=== PATIENT | female | born 1985 | race Caucasian/White ===

== ENCOUNTER 2016-08-06 09:29 | Inpatient (IN) ==
[2016-08-06] MEDS ORDERED: NS 1,000 ML IV ONE ×2 (10:04→12:28)
[2016-08-06] MEDS ORDERED: ZOFRAN IV ONE (10:05)
[2016-08-06] MEDS ORDERED: TORADOL IV ONE (10:05)
[2016-08-06 10:31] LABS: URINE CULTURE NEEDED? NO; URINE MICRO REVIEW NEEDED? NO; URINE SOURCE CLEAN CATCH
[2016-08-06 10:37] LABS: BASO% 0.2 % (0.0-0.8); EOS# 0.04 X1000 (0.0-0.7); EOS% 0.3 % (0.0-10.0); HEMATOCRIT 40.6 % (37.0-47.0); HEMOGLOBIN 13.9 g/dL (12.0-16.0); IMM GRAN# 0.02 X1000 (0.0-0.04); IMM GRAN% 0.2 % (0.0-0.5); LYMPH% 7.8 % (20.5-51.1); MANUAL DIFF NEEDED? NO; MCH 31.3 PG (27-31); MCHC 34.2 g/dL (33-37); MCV 91.4 FL (81-99); MONO# 0.55 X1000 (0.11-0.59); MONO% 4.3 % (1.7-9.3); MPV 13.1 FL (7.4-10.4); NEUT% 87.2 % (42.2-75.2); PLT 151 X1000 (130-400); RBC 4.44 XMIL (4.2-5.4)
[2016-08-06 10:38] LABS: BILIRUBIN URINE NEGATIVE (NEGATIVE); BLOOD URINE NEGATIVE (NEGATIVE); COLOR YELLOW; GLUCOSE URINE NEGATIVE (NEGATIVE); LEUKOCYTES URINE NEGATIVE (NEGATIVE); NITRITE URINE NEGATIVE (NEGATIVE); PH URINE 8.5; PROTEIN URINE 50 mg/dL (NEGATIVE); SP GRAVITY URINE 1.021; TURBIDITY URINE HAZY (CLEAR); UROBILINOGEN URINE NORMAL (NORMAL)
[2016-08-06 10:39] LABS: UR EPITHELIAL CELLS <10 /HPF (<10); URINE BACTERIA 1+ /HPF; URINE RBC <10 /HPF (<10); URINE WBC <10 /HPF (<10)
[2016-08-06 11:18] LABS: AGAP 18; ALBUMIN 4.7 g/dL (3.5-5.0); ALKALINE PHOSPHATASE 60 U/L (32-104); AMYLASE 54 U/L (20-200); BUN 12 mg/dL (8-22); CALCIUM 9.7 mg/dL (8.8-10.2); CHLORIDE 96 mmol/L (98-107); COSMO 272; GOT 24 U/L (10-30); GPT 16 U/L (10-36); LIPASE 27 U/L (13-60); POTASSIUM 3.7 mmol/L (3.5-5.1); SODIUM 136 mmol/L (136-145); TCO2 22 mmol/L (25-35); TOTAL BILIRUBIN 0.43 mg/dL (0.20-1.00); TOTAL PROTEIN 8.1 g/dL (6.3-8.3)
--- NOTE | 2016-08-06 11:24 | Diag Imaging Result Document ---
PROCEDURE NAME: US ABDOMEN-COMPLETE - 08/06/2016 COMPLETE ABDOMINAL ULTRASOUND: COMPARISON: None available. FINDINGS: There are shadowing stones in the gallbladder lumen with a large stone lodged in the gallbladder neck measuring up to 1.3 cm. The gallbladder wall is grossly thickened and appears to be edematous. The wall of the gallbladder measures up to 9 mm in thickness. The gallbladder is distended. The common bile duct is normal in diameter. Sonographic Almazan's sign was reported to be positive by the technologist. The liver, spleen, visualized pancreas, aorta, IVC, and kidneys are unremarkable. IMPRESSION: Cholelithiasis with a distended gallbladder and a thickened and edematous gallbladder wall concerning for cholecystitis.
--- NOTE | 2016-08-06 12:06 | PROVIDER DOCUMENTATION ---
This chart was entered by Grecia Castanon Scribe, acting as scribe for Nick Barajas MD. HPI-Abdominal Pain/GI Problem - General Chief Complaint: Abdominal Pain Stated Complaint: SENT BY [facility] FOR EVAL Time Seen by Provider: 08/06/16 09:41 Source: patient Allergies/Adverse Reactions: Patient Allergies Allergy/AdvReac Type Severity Reaction Status Date / Time No Known Allergies Allergy Verified 08/06/16 09:44 Home Medications: Home Medication List Medication Instructions Recorded Confirmed Last Taken Type NK [No Home Medications] 08/06/16 08/06/16 Unknown History - History of Present Illness-ABD Nature of Presenting Problems: Pt is a 31 yof who came to the ED with a cc of abdominal pain. Pt reports she started having RUQ pain yesterday around three. Pt reports she has been N/V. Pt reports the pain radiates to her back in the middle of her shoulder blades. Abdominal Pain Onset Location: reports: RUQ Pain Radiation: reports: back Quality of Pain: reports: sharp Onset/Duration: reports: 24 hours ago Timing: reports: still present Exposure to sick contacts?: Yes Associated Symptoms: reports: nausea, vomiting Last BM: unsure Dark Stools Present?: reports: none noticed Rectal Bleeding: reports: none Rectal Pain: reports: none Bruising or Bleeding Gums?: No Similar Symptoms Previously?: No Recently seen or treated by another doctor?: No (e) Review of Systems - Adult - REVIEW OF SYSTEMS - ADULT Constitutional: denies: chills, fever Eyes: reports: no symptoms reported Ears, Nose, Mouth & Throat: reports: no symptoms reported Cardiovascular: reports: no symptoms reported Respiratory: reports: no symptoms reported Gastrointestinal: reports: abdominal pain, nausea, vomiting. denies: diarrhea, difficulty swallowing Genitourinary: reports: no symptoms reported Musculoskeletal: reports: back pain. denies: frequent leg cramps, muscle aches Integumentary: reports: no symptoms reported Neurological: denies: loss of balance, seizure, syncope Psychiatric: reports: no symptoms reported Endocrine: reports: no symptoms reported Hematologic/Lymphatic: reports: no symptoms reported Allergic/Immunologic: reports: no symptoms reported All Other Systems: Reviewed and Negative Past History - Adult - PAST MEDICAL HISTORY-ADULT Review of Records: reports: Nursing Assessment Review Major Childhood Illnesses: reports: denies history Cardiovascular: reports: denies history Respiratory: reports: denies history Gastrointestinal: reports: denies history Obstetrical/Gynecological: reports: denies history Genitourinary: reports: denies history Musculoskeletal: reports: denies history Neurological: reports: denies history Endocrine/Immune: reports: denies history Other Conditions: reports: denies history - PRIOR SURGERIES/PROCEDURES Surgical/Procedure History: reports: tonsillectomy - IMMUNIZATION STATUS Childhood Immunizations: See Nurse Assessment Flu Vaccine: See Nurse Assessment - FAMILY HISTORY Family History: reviewed, not pertinent Physical Exam-General - CONSTITUTIONAL General Appearance: alert, moderate distress - EYES Eyes: PERRL/EOMI, pink conjunctivae - HEAD, EARS, NOSE, MOUTH & THROAT HENMT: normocephalic/atraumatic, moist mucous membranes - NECK Neck: non-tender - RESPIRATORY Respiratory: chest non-tender, lungs clear, normal breath sounds - CARDIOVASCULAR Cardiovascular: normal peripheral pulses, regular rate, rhythm - GASTROINTESTINAL (ABDOMEN) Abdominal Exam: tenderness, Almazan's sign - MUSCULOSKELETAL Back Exam: normal inspection, no CVA tenderness Extremity: non-tender - SKIN Integumentary: normal color, normal turgor - NEUROLOGIC Neurologic: grossly normal - PSYCHIATRIC Psych/Mental Status: normal mood/affect, normal thought content, normal thought process, oriented x 3 Progress - PLAN OF CARE/RESULTS Progress/Plan/Lab Results: Vital Signs - 8 hr 08/06/16 09:32 Temperature 97.8 F Pulse Rate 52 L Respiratory Rate 16 Blood Pressure 136/83 O2 Sat by Pulse Oximetry 100 Orders Category Date Time Status AMYLASE [CHEM] Stat Lab 08/06/16 10:03 Uncollected CBC WITH ELECTRONIC DIFF [HEME] Stat Lab 08/06/16 10:03 Uncollected COMPREHENSIVE METABOLIC PANEL [CHEM] Stat Lab 08/06/16 10:03 Uncollected Result Diagrams: 08/06/16 10:05 08/06/16 10:05 - REASSESSMENT Reassessment #1 Status: improving (pain stabilized and wants to have surgery chad) - ULTRASOUND (By Radiology) 1 US Study: Abdomen (cholelithiasis with a distended gallbldadder and a thickened and edematous gallbladder wall concerning for cholecystitis.) Departure - Departure Time of Disposition Decision: 13:45 DIAGNOSIS: Cholecystitis with cholelithiasis Qualifiers: Cholelithiasis location: gallbladder Cholecystitis acuity: acute Biliary obstruction: without biliary obstruction Qualified Code(s): K80.00 - Calculus of gallbladder with acute cholecystitis without obstruction DIAGNOSIS: (Ruled Out): Cholecystitis with cholangitis Disposition: ADMITTED INPATIENT 09 Certified Medical Emergency: Emergent Condition: Stable Referrals and Follow-Ups: Cait Cabrera MD [Primary Care Provider] - - Critical Care Note This patient required my direct & personal management of CC.: No This chart was documented by the indicated scribe, (Grecia Castanon Scribe) and accurately reflects the services I performed and decisions made by me, Nick Barajas MD, as attested by the provider's signature.
[2016-08-06] MEDS ORDERED: DILAUDID IV ONE (12:28)
[2016-08-06] MEDS ORDERED: ZOSYN 4.5 GM/NS 4.5 GM/100 ML IVPB IV ONE (13:48)
--- NOTE | 2016-08-06 16:28 | HISTORY AND PHYSICAL ---
ADMITTING DIAGNOSIS: Acute cholecystitis. HISTORY OF PRESENT ILLNESS: This is a 31-year-old female presenting with right upper quadrant pain that started yesterday around 3. She reports nausea and vomiting. Reports the pain does radiate to her back, in the middle of her shoulder blade. Described as sharp. Denies any kind of previous history of this before. She was evaluated in the emergency department and found to have an exam concerning for cholecystitis with an ultrasound that was consistent it. I admitted the patient for antibiotics and potential for cholecystectomy. PAST MEDICAL HISTORY: None reported. PAST SURGICAL HISTORY: Tonsillectomy. MEDICATIONS: None. ALLERGIES: None. FAMILY HISTORY: Reviewed with the patient but noncontributory. REVIEW OF SYSTEMS: A full 10 point review of systems obtained and negative except as specified in HPI. SOCIAL HISTORY: Denies alcohol, tobacco, or illicit drugs. PHYSICAL EXAMINATION: VITAL SIGNS: The patient is currently afebrile. Temperature 97.7 degrees, pulse is regular at 40, respiratory nonlabored at 16, blood pressure 106/57, O2 saturation 100% on room air. GENERAL: No acute distress. female, appears slightly uncomfortable. HEENT: Normocephalic, atraumatic. Pupils equal, round, reactive to light. Mucous membranes moist. Oropharynx benign. NECK: Supple. Trachea midline. CARDIOVASCULAR: Regular rate and rhythm. LUNGS: Grossly clear. ABDOMEN: Soft, nondistended. Tender to palpation in the right upper quadrant. Questionably positive Almazan's sign. No peritonitis. EXTREMITIES: Moves all extremities well. No signs of injury. SKIN: No signs of jaundice. VASCULAR: All extremities perfused. NEUROLOGIC: Grossly intact. LABORATORY: Patient's white blood cell count is 12.8, hematocrit 40, platelet count 151,000. CMP reviewed and grossly within normal limits. Ultrasound reviewed and noted above. ASSESSMENT AND PLAN: This is a 31-year-old female with acute cholecystitis. Acute cholecystitis. At this time we will keep the patient NPO and keep her on antibiotics for the next 12 hours. Plan a laparoscopic cholecystectomy in the morning. Discussed with her the risks, benefits, and alternatives for the procedure. Risks including, but not limited to, bleeding, infection, risk of anesthesia, risk of damaging the common bile duct, and bile leak. All questions were answered. She wants to proceed with the procedure in the morning. cc: Lakhwinder Gilmore MD
[2016-08-06] MEDS ORDERED: MORPHINE IV PRN (20:39)
[2016-08-06] MEDS ORDERED: ZOFRAN IV PRN (20:39)
[2016-08-06] MEDS: ZOSYN 3.375 GM/NS 3.375 GM/50 ML IVPB IV SCH (22:16)
--- NOTE | 2016-08-07 06:33 | PROGRESS NOTE ---
DATE: 08/07/2016 SUBJECTIVE: Patient doing okay. Still has some mild pain. OBJECTIVE: Vital Signs: Patient is currently afebrile. Her vital signs have been stable. General: No acute distress. Cardiovascular: Regular rate and rhythm. Lungs: Grossly clear. Abdomen: Soft. Some minimal tenderness to palpation of the right upper quadrant. Extremities: Moves all extremities. Skin: No signs of jaundice. Vascular: All extremities perfused. ASSESSMENT/PLAN: A 31-year-old female with acute cholecystitis. Acute cholecystitis. At this time, we will plan on surgical intervention later today. The risks, benefits, and alternatives were discussed. The patient has no questions about the procedure. We will plan on surgical intervention today. cc: Lakhwinder Gilmore MD
[2016-08-07] MEDS: ZOSYN 3.375 GM/NS 3.375 GM/50 ML IVPB IV SCH (06:36)
[2016-08-07] MEDS ORDERED: MARCAINE 0.25% PF/EPI 1:200,000 ONE (09:00)
[2016-08-07] MEDS ORDERED: SODIUM CHLORIDE 0.9% ONE (09:00)
[2016-08-07] MEDS ORDERED: XYLOCAINE-MPF 1% ONE (09:01)
[2016-08-07] MEDS ORDERED: LR 1,000 ML ONE (09:01)
[2016-08-07] MEDS: DEMEROL ONE ×2 (10:03→10:08)
[2016-08-07] MEDS ORDERED: MORPHINE ONE (10:13)
[2016-08-07] MEDS ORDERED: DIPRIVAN 1% ONE (10:29)
[2016-08-07] MEDS ORDERED: FENTANYL ONE (10:29)
[2016-08-07 11:22] VITALS: BP 136/80
[2016-08-07] MEDS ORDERED: NORCO-10 PO PRN (11:38)
--- NOTE | 2016-08-07 13:54 | OPERATIVE NOTE ---
PROCEDURE DATE: 08/07/2016 PREOPERATIVE DIAGNOSIS: Acute cholecystitis. POSTOP DIAGNOSIS: Acute cholecystitis. PROCEDURES: Laparoscopic cholecystectomy. SURGEON: Lakhwinder Gilmore MD. COREMAKER BENCH: None. ANESTHESIA: General endotracheal. INTRAOPERATIVE FINDINGS: As above. COMPLICATIONS: None at time of dictation. ESTIMATED BLOOD LOSS: 20 mL. SPECIMENS REMOVED: Gallbladder and its contents. BRIEF HISTORY: The patient is a 31-year-old female presenting with right upper quadrant pain. She had an ultrasound and labs that suggested acute cholecystitis. The risks, benefits, and alternatives for surgical intervention were discussed. She had been admitted and started on IV antibiotics. She voiced understanding and wished to proceed with procedure. DESCRIPTION OF PROCEDURE: After informed consent was obtained, patient brought to the operative theatre, transferred to the operative table, placed supine position. General endotracheal anesthesia was then performed without complication. A formal time-out was then performed confirming patient, date, procedure. All were in agreement. At that time, attention given to the abdomen. An infraumbilical incision was made through which using Optiview technique we were able to insert 11 mm trocar, connected to insufflation. Pneumoperitoneum was achieved. Under direct visualization placed 3 more trocars all 5 mm, 1 in subxiphoid, 2 in right upper quadrant. Using these the gallbladder was identified. It was very distended. We had to aspirate some of the gallbladder contents to be able to grasp it but once we had done this we were able to retracted it cephalad dissecting out the cystic duct and cystic artery to achieve the critical view of safety. We doubly clipped and ligated these and dissected gallbladder off the gallbladder fossa. There was a more prominent artery noted in the gallbladder fossa which we clipped and ligated. We brought the gallbladder out through an infraumbilical incision and Endobag. We irrigated out the abdomen copiously, reexamined the gallbladder fossa. There was no active bleeding. No drainage of bile noted. The clips were in good position. We closed the infraumbilical incision with 0 Vicryl and Giovanny-Oanh device, removed all trocars, disconnected insufflation. Pneumoperitoneum was released. We placed 4-0 Monocryl in all skin incisions. A sterile dressing. The patient tolerated procedure well, was transferred to recovery room stable condition. cc: Lakhwinder Gilmore MD [facility]
[2016-08-09] MEDS ORDERED: ZOFRAN ONE (09:12)
[2016-08-09] MEDS ORDERED: NEOSTIGMINE ONE (09:12)
[2016-08-09] MEDS ORDERED: DECADRON ONE (09:13)
[2016-08-09] MEDS ORDERED: LR 2,000 ML ONE (09:13)
[2016-08-09] MEDS ORDERED: XYLOCAINE-MPF 2% ONE (09:13)
[2016-08-09] MEDS ORDERED: QUELICIN (DOSE) ONE (09:13)
[2016-08-09] MEDS ORDERED: TORADOL ONE (09:13)
[2016-08-09] MEDS ORDERED: ROBINUL ONE (09:13)
[2016-08-09] MEDS ORDERED: ZEMURON ONE (09:13)
== END 2016-08-07 13:04 | disposition home or self-care (01) ==
LOC: ED 09:29 → 4N 09:30
PROVIDERS: ADMIT Surgery; ATTEND Surgery